=== PATIENT | male | born 1970 | race Two or more races ===

== ENCOUNTER 2019-01-17 15:43 | Emergency (ER) | payer SELFPAY ==
[~2019-01-17] VITALS: Ht 188 cm; Wt 91.5 kg
[2019-01-17 15:53] VITALS: BP 113/87
== END 2019-01-17 16:55 | disposition home or self-care (01) ==
LOC: ED 16:49
DX: S97.82XA Crushing injury of left foot, initial encounter (principal); S97.81XA Crushing injury of right foot, initial encounter; X58.XXXA Exposure to other specified factors, initial encounter; Y93.89 Activity, other specified; Y92.89 Other specified places as the place of occurrence of the external cause; Y99.8 Other external cause status
CPT/HCPCS: 99283